=== PATIENT | male | born 1945 | race Caucasian/White ===

== ENCOUNTER → 2017-04-01 | Outpatient (CLI) | payer OTHER ==
--- NOTE | 2017-04-01 11:56 | KCIC ---
Examination: 3 views of the bilateral hands HISTORY: History of polyarthralgia COMPARISON: None available FINDINGS: There is moderate joint space loss identified in the second and third metacarpophalangeal joints of the bilateral hands. Small medial osteophytes identified in the left second, third metatarsal heads and right third, fourth, metatarsal heads. There is mild joint space loss identified in the bilateral PIP, DIP joints of the bilateral hands. IMPRESSION: 1. Moderate joint space loss identified in the second, third MCP joints of the bilateral hands with small medial osteophytes as described. Differential includes degenerative changes or CPPD arthropathy. Electronically signed by: Pako Rock MD (04/01/2017 11:52 AM) [id number]
== END | disposition home or self-care (01) ==
LOC: KCIC 11:00
PROVIDERS: ATTEND Internal Medicine Rheumatology
DX: M19.042 Primary osteoarthritis, left hand (principal); M19.041 Primary osteoarthritis, right hand
CPT/HCPCS: 73130

== ENCOUNTER → 2021-01-07 | Outpatient (CLI) | payer BC ==
--- NOTE | 2021-01-07 17:04 | KCIC ---
Exam Date: 01/07/2021 2:37 PM MRI RIGHT LOWER EXTREMITY JOINT WITHOUT Indication: Reason: RIGHT KNEE PAIN / Spl. Instructions: / History: Right knee pain, medially, chron ic.. TECHNIQUE: Routine multiplanar MR imaging of the knee was performed without contrast. FINDINGS: Abnormal signal in the body of the medial meniscus is consistent with complex tearing extending into the posterior horn. There is extrusion of the body of the medial meniscus. There is a posterior horn root tear of the medial meniscus. Degenerative signal there is seen in the body of the lateral meniscus without discrete lateral menisc al tear. The anterior cruciate ligament, posterior cruciate ligament, medial collateral ligament, and lateral collateral ligament complex are intact. Patellofemoral extensor mechanism and popliteus tendon are w ithin normal limits. There is diffuse chondral thinning in the patellofemoral compartment with extensive full-thickness ch ondral loss along the trochlea and mild to moderate subchondral cystic degenerative changes. Addition al smaller full-thickness chondral defects are seen in the patellofemoral compartment. There is extensive full-thickness chondral loss in the medial compartment with moderate subchondral d egenerative marrow signal. There is a focal subchondral insufficiency fracture involving the weightbe aring medial femoral condyle measuring approximately 9 x 5 mm. Partial thickness chondral defects are seen in the lateral compartment without full-thickness chondra l loss. There is a small joint effusion. There is no popliteal cyst. IMPRESSION: There is extensive full-thickness chondral loss in the medial compartment with a small focal subchond ral insufficiency fracture involving the weightbearing medial femoral condyle. Complex tearing is see n involving the body and posterior horn of medial meniscus with a posterior horn root tear. Extensive full-thickness chondral loss is also seen involving the patellofemoral compartment. Electronically signed by: Rogerio Avilez MD (01/07/2021 5:01 PM) [id number]
== END ==
LOC: KCIC MRI 14:21
PROVIDERS: ATTEND Physician Assistant
DX: S72.431A Displaced fracture of medial condyle of right femur, initial encounter for closed fracture (principal); S83.241A Other tear of medial meniscus, current injury, right knee, initial encounter; M25.461 Effusion, right knee; X58.XXXA Exposure to other specified factors, initial encounter; Y93.89 Activity, other specified; Y92.89 Other specified places as the place of occurrence of the external cause; Y99.8 Other external cause status
CPT/HCPCS: 73721